=== PATIENT | female | born 1995 | race Caucasian/White ===

== ENCOUNTER 2016-11-09 17:55 | Emergency (ER) | payer OTHER ==
[~2016-11-09] VITALS: Ht 175.3 cm; Wt 72.8 kg
[2016-11-09 18:16] VITALS: TEMP 36.9; Ht 175.3 cm; Wt 72.8 kg
[2016-11-09] MEDS ORDERED: IBUPROFEN 600 MG TAB PO STA (18:47)
--- NOTE | 2016-11-09 19:23 | DIAGNOSTIC IMAGING REPORT ---
C-SPINE ROUTINE 4 OR 5 VIEWS HISTORY: Pain neck pain eval disc space COMPARISON: None. FINDINGS: The cervical spine is visualized from C1 through the superior endplate of T1. There is no fracture. No subluxation. Disc spaces are preserved. Prevertebral soft tissues and the atlantodens interval are intact. Muscle spasm with associated straightening of the cervical curvature. IMPRESSION: Muscular spasm. Otherwise negative study. The above report was generated using voice recognition software. It may contain grammatical, syntax or spelling errors. Electronically signed by: Zelalem Tang M.D. 11/09/2016 7:22 PM Dictated Date/Time: 11/09/2016 7:20 PM
[2016-11-09] MEDS ORDERED: BCPILLS PO (19:30)
[2016-11-09] MEDS ORDERED: IBUP-103 PO (19:30)
[2016-11-09 19:36] VITALS: BP 121/108; PULSE 91; O2SAT 100
--- NOTE | 2016-11-10 00:29 | EMERGENCY ROOM VISIT NOTE ---
History Report prepared by Be: Mehdi Hernandez Under the Supervision of: Dr. Oleksandr North M.D. First contact with patient: 18:41 Chief Complaint: NECK PAIN Stated Complaint: NECK PAIN History of Present Illness The patient is a 21 year old female who presents to the Emergency Room with complaints of constant neck pain for the past 2-3 days. The patient states that the pain is mostly in the posterior neck in the center. She states that it hurts to turn her head either way, though it hurts more to turn to the right. She denies any numbness or weakness in her arms or legs, chest pain, shortness of breath, fever, or chance of being . The patient denies any current headache, trouble urinating, or any active medical problems. She did have a headache previously. She additionally notes that she works out, though she is not lifting heavier weights than she normally does, and she states that she has been driving a lot recently. She came to the emergency department because she was concerned about meningitis. Source of History: patient Onset: 2-3 days ago Position: neck Quality: ache Timing: constant Modifying Factors (Worsening): movement Associated Symptoms: No fevers, No headache, No chest pain, No SOB, No urinary symptoms, No weakness, No numbness Review of Systems See HPI for pertinent positives & negatives. A total of 10 systems reviewed and were otherwise negative. Past Medical & Surgical Medical Problems: (1) Asthma (2) Infection of bursa Surgical Problems: (1) H/O knee surgery Family History Patient reports no known family medical history. Social History Smoking Status: Never Smoker Marital Status: single Housing Status: lives with roommate Occupation Status: [employer] student Current/Historical Medications Scheduled Control Pills ( Control Pills), 1 TAB PO DAILY Miscellaneous Medications Ibuprofen Tab (Advil), 200 MG PO Allergies Coded Allergies: No Known Allergies (Unverified , 03/19/14) Physical Exam Vital Signs Date Time Temp Pulse Resp B/P (MAP) Pulse Ox O2 Delivery O2 Flow Rate FiO2 11/09/16 19:36 91 20 121/108 100 Room Air 11/09/16 18:16 36.9 73 16 151/88 100 Room Air Physical Exam Constitutional: Vital signs reviewed. Well-appearing. Easily conversant. Eyes: Pupils are equal round reactive to light. Conjunctiva are noninjected. ENT: Pharynx is clear without erythema or exudate. Mucous membranes are moist. No midline tenderness to the cervical spine. Pain with turning her head to the right. Respiratory: Clear to auscultation bilaterally. Breath sounds are equal bilaterally. Cardiovascular: Regular rate and rhythm. No rubs or gallops. GI: Soft, nondistended and nontender. Bowel sounds are present. Musculoskeletal: No peripheral edema. Integumentary: No cyanosis. Neurological: The patient is awake and alert. No focal deficits. Psychiatric: Normal affect. Medical Decision & Procedures ER Provider Diagnostic Interpretation: Radiology results as stated below per my review and the radiologist's interpretation: C-SPINE ROUTINE 4 OR 5 VIEWS HISTORY: Pain neck pain eval disc space COMPARISON: None. FINDINGS: The cervical spine is visualized from C1 through the superior endplate of T1. There is no fracture. No subluxation. Disc spaces are preserved. Prevertebral soft tissues and the atlantodens interval are intact. Muscle spasm with associated straightening of the cervical curvature. IMPRESSION: Muscular spasm. Otherwise negative study. The above report was generated using voice recognition software. It may contain grammatical, syntax or spelling errors. Electronically signed by: Zelalem Tang M.D. 11/09/2016 7:22 PM Dictated Date/Time: 11/09/2016 7:20 PM Medications Administered Medications (Trade) Dose Ordered Sig/Cayla Route Start Time Stop Time Status Last Admin Dose Admin Ibuprofen (Motrin Tab) 600 mg NOW STAT PO 11/09/16 18:47 11/09/16 18:48 DC 11/09/16 18:52 600 MG ED Course 184: The patient was evaluated in room C5. A complete history and physical exam was performed. 184: Motrin Tab 600mg PO 192: I discussed the test results with the patient. She will be discharged home. Medical Decision This is a 21-year-old female presents with neck pain. Differential diagnosis includes strain, torticollis, cervical disc disease. I did perform a limited focused review of portions of the patient's old chart on the electronic medical record. The patient has had no recent pertinent visits to this hospital. I did evaluate the patient as noted above. The patient is presenting with right -sided neck pain. She appears to have some spasm and likely has a strain neck. She is neurologically intact. She did have a headache but it is resolved. She has had no fevers. There is no reason for me to suspect meningitis. I did order and personally review the patient's cervical spine x-rays as described above. There is no evidence of fracture dislocation. Disc spaces were preserved. She did have evidence of muscle spasm with straightening of the cervical spine. I did discuss the x-ray with the patient. I did treat the patient with ibuprofen and recommended continuing NSAIDs. She was discharged in good condition and given return instructions as outlined below. Medication Reconcilliation Current Medication List: was personally reviewed by me Blood Pressure Screening Patient's blood pressure: Elevated blood pressure Blood pressure disposition: Elevated BP felt to be situational Impression Primary Impression: Neck pain Scribe Attestation The scribe's documentation has been prepared under my direct and personally reviewed by me in its entirety. I confirm that the note above accurately reflects all work, treatment, procedures, and medical decision making performed by me. Departure Information Dispostion Home / Self-Care Referrals Keyana John M.D. (PCP) Forms HOME CARE DOCUMENTATION FORM, IMPORTANT VISIT INFORMATION, WORK / SCHOOL INSTRUCTIONS Patient Instructions ED Sprain Strain Neck, My [facility] Additional Instructions You have been examined and treated today on an emergency basis only. This is not a substitute for, or an effort to provide, complete comprehensive medical care. It is impossible to recognize and treat all injuries or illnesses in a single emergency department visit. It is therefore important that you follow up closely with your physician. Call as soon as possible for an appointment. Return for worsening symptoms or if you develop fever, severe headache, chest pain, shortness of breath, numbness or weakness in your extremities or any other concerning symptoms.
== END 2016-11-09 19:43 | disposition home or self-care (01) ==
LOC: C.EDB 17:58 → C.EDA 19:43
DX: M54.2 Cervicalgia (principal); J45.909 Unspecified asthma, uncomplicated; Z86.19 Personal history of other infectious and parasitic diseases; Z98.890 Other specified postprocedural states

== ENCOUNTER 2017-04-19 05:05 | Emergency (ER) | payer OTHER ==
[~2017-04-19] VITALS: Ht 175.3 cm; Wt 79.4 kg
[~2017-04-19 05:05] MED LIST: BCPILLS PO; IBUP-103 PO
[2017-04-19 05:15] VITALS: TEMP 37.1; Ht 175.3 cm; Wt 79.4 kg
[2017-04-19] MEDS ORDERED: SODIUM CHLORIDE 0.9% 1000ML 1,000 ML, SODIUM CHLORIDE 0.9% 1000ML 1,000 ML IV ONE (05:15)
[2017-04-19 05:57] LABS: BASO % 0.2 %; BASO ABS # 0.02 K/uL (0-0.2); EOS % 0.5 %; EOS ABS # 0.04 K/uL (0-0.5); HEMATOCRIT 37.3 % (37-47); HEMOGLOBIN 12.5 g/dL (12.0-16.0); IG# 0.01 K/uL (0.00-0.02); LYMPH % 31.1 %; LYMPH ABS # 2.52 K/uL (1.2-3.4); MEAN CELL VOLUME 88.2 fL (80-100); MEAN CORPUSCULAR HEMOGLOBIN 29.6 pg (25-34); MEAN CORPUSCULAR HGB CONC 33.5 g/dl (32-36); MONO % 11.3 %; MONO ABS # 0.92 K/uL (0.11-0.59); NEUT % 56.8 %; PLATELET COUNT 212 K/uL (130-400); RED CELL DISTRIBUTION WIDTH CV 13.2 % (11.5-14.5); RED CELL DISTRIBUTION WIDTH SD 42.6 fL (36.4-46.3); WHITE BLOOD COUNT 8.11 K/uL (4.8-10.8)
[2017-04-19 06:10] LABS: ALBUMIN 3.4 gm/dl (3.4-5.0); CALCIUM 8.2 mg/dl (8.5-10.1); CREATININE 0.74 mg/dl (0.60-1.20); POTASSIUM 3.3 mmol/L (3.5-5.1)
[2017-04-19 06:13] LABS: TOTAL PROTEIN 7.3 gm/dl (6.4-8.2)
--- NOTE | 2017-04-19 06:34 | DIAGNOSTIC IMAGING REPORT ---
CHEST 2 VIEWS ROUTINE CLINICAL HISTORY: asthma attack COMPARISON STUDY: No previous studies for comparison. FINDINGS: Lung volumes are normal. No pneumothorax or pleural effusion is noted. Cardiac size is normal. Mediastinal contours are normal. There is no evidence for pulmonary edema. There is no consolidation to suggest pneumonia. IMPRESSION: No acute cardiopulmonary findings. Electronically signed by: Jaya Muñiz M.D. 04/19/2017 6:33 AM Dictated Date/Time: 04/19/2017 6:32 AM
[2017-04-19 06:40] VITALS: BP 132/78; PULSE 78; O2SAT 97
--- NOTE | 2017-04-20 04:44 | EMERGENCY ROOM VISIT NOTE ---
History First contact with patient: 05:09 Chief Complaint: RESPIRATORY DISTRESS Stated Complaint: ASTHMA ATTACK Nursing Triage Summary: Dancing at thon, became dizzy and short of breath. Took one puff of fluticasone inhaler prior to EMS arrival and was feeling better at that time. Transported via EMS without exacerbation. No dyspnea upon arrival, dizziness remains. History of Present Illness The patient is a 22 year old female who presents to the Emergency Room with complaints of lightheadedness, dizziness, and shortness of breath that occurred at [facility] dance marathon. The patient has been awake for nearly 2 straight days and has been dancing for 37 consecutive hours. She states that while she was on the dance floor she began with the dizziness and lightheadedness. She felt like she was having an asthma attack and took fluticasone without any improvement of her symptoms. The patient is transported via EMS and feels much better. She is not having current chest pain, chest tightness, shortness of breath, or abdominal pain. She denies chance of . She considers herself otherwise usually healthy. She rates her current discomfort a 0/10. Review of Systems More than 10 systems were reviewed and otherwise negative with the exception of history of present illness. Past Medical/Surgical History Medical Problems: (1) Asthma (2) Infection of bursa Surgical Problems: (1) H/O knee surgery Family History Patient reports no known family medical history. Social History Smoking Status: Never Smoker Marital Status: single Housing Status: lives with roommate Occupation Status: [employer] student Current/Historical Medications Scheduled Control Pills ( Control Pills), 1 TAB PO DAILY Physical Exam Vital Signs Date Time Temp Pulse Resp B/P (MAP) Pulse Ox O2 Delivery O2 Flow Rate FiO2 04/19/17 06:40 78 17 132/78 97 04/19/17 06:25 91 21 100 04/19/17 06:10 96 20 100 04/19/17 06:05 93 17 100 04/19/17 05:50 87 16 99 Room Air 04/19/17 05:35 89 18 04/19/17 05:15 37.1 89 15 137/87 99 Room Air 04/19/17 05:12 137/87 Physical Exam VITALS: Vitals are noted on the nurse's note and reviewed by myself. Vital signs stable. GENERAL: Well-developed, well-nourished, white female who appears very tired. She is comfortable and cooperative. HEAD: Normocephalic atraumatic. EARS: External ear normal. External auditory canals clear, tympanic membranes pearly golden without erythema or effusion bilaterally. EYES: Pupils equal round and reactive to light and accommodation. Conjunctivae without injection, sclerae without icterus. Extraocular movements intact. NOSE: Patent, turbinates without inflammation or discharge. MOUTH: Mucous membranes moist. Tonsils are not enlarged. Pharynx without erythema, blood, or exudate. Uvula midline. Airway patent. NECK: Supple without nuchal rigidity. No lymphadenopathy. No thyromegaly. Cervical spine is nontender. HEART: Regular rate and rhythm without murmurs gallops or rubs. LUNGS: Clear to auscultation bilaterally without wheezes, rales or rhonchi. No retractions or accessory muscle use. ABDOMEN: Positive normal bowel sounds x 4. Soft, nontender, without masses or organomegaly. No guarding or rebound tenderness. MUSCULOSKELETAL: No muscle atrophy, erythema, or edema noted. Full range of motion without joint tenderness in all extremities. Medical Decision & Procedures ER Provider Diagnostic Interpretation: CHEST 2 VIEWS ROUTINE CLINICAL HISTORY: asthma attack COMPARISON STUDY: No previous studies for comparison. FINDINGS: Lung volumes are normal. No pneumothorax or pleural effusion is noted. Cardiac size is normal. Mediastinal contours are normal. There is no evidence for pulmonary edema. There is no consolidation to suggest pneumonia. IMPRESSION: No acute cardiopulmonary findings. Laboratory Results 04/19/17 05:35 Red Blood Count 4.23, Mean Corpuscular Volume 88.2, Mean Corpuscular Hemoglobin 29.6, Mean Corpuscular Hemoglobin Concent 33.5, Mean Platelet Volume 10.0, Neutrophils (%) (Auto) 56.8, Lymphocytes (%) (Auto) 31.1, Monocytes (%) (Auto) 11.3, Eosinophils (%) (Auto) 0.5, Basophils (%) (Auto) 0.2, Neutrophils # (Auto ) 4.60, Lymphocytes # (Auto) 2.52, Monocytes # (Auto) 0.92, Eosinophils # (Auto ) 0.04, Basophils # (Auto) 0.02 04/19/17 05:35 Test 04/19/17 05:35 04/19/17 05:45 White Blood Count 8.11 K/uL (4.8-10.8) Red Blood Count 4.23 M/uL (4.2-5.4) Hemoglobin 12.5 g/dL (12.0-16.0) Hematocrit 37.3 % (37-47) Mean Corpuscular Volume 88.2 fL (80-100) Mean Corpuscular Hemoglobin 29.6 pg (25-34) Mean Corpuscular Hemoglobin Concent 33.5 g/dl (32-36) Platelet Count 212 K/uL (130-400) Mean Platelet Volume 10.0 fL (7.4-10.4) Neutrophils (%) (Auto) 56.8 % Lymphocytes (%) (Auto) 31.1 % Monocytes (%) (Auto) 11.3 % Eosinophils (%) (Auto) 0.5 % Basophils (%) (Auto) 0.2 % Neutrophils # (Auto) 4.60 K/uL (1.4-6.5) Lymphocytes # (Auto) 2.52 K/uL (1.2-3.4) Monocytes # (Auto) 0.92 K/uL (0.11-0.59) Eosinophils # (Auto) 0.04 K/uL (0-0.5) Basophils # (Auto) 0.02 K/uL (0-0.2) RDW Standard Deviation 42.6 fL (36.4-46.3) RDW Coefficient of Variation 13.2 % (11.5-14.5) Immature Granulocyte % (Auto) 0.1 % Immature Granulocyte # (Auto) 0.01 K/uL (0.00-0.02) Urine Color YELLOW Urine Appearance CLEAR (CLEAR) Urine pH 6.5 (4.5-7.5) Urine Specific [place] 1.002 (1.000-1.030) Urine Protein NEG (NEG) Urine Glucose (UA) NEG (NEG) Urine Ketones NEG (NEG) Urine Occult Blood NEG (NEG) Urine Nitrite NEG (NEG) Urine Bilirubin NEG (NEG) Urine Urobilinogen NEG (NEG) Urine Leukocyte Esterase NEG (NEG) Urine Test NEG (NEG) Anion Gap 7.0 mmol/L (3-11) Est Creatinine Clear Calc Drug Dose 124.7 ml/min Estimated GFR () 133.3 Estimated GFR (Non- 115.0 BUN/Creatinine Ratio 12.3 (10-20) Calcium Level 8.2 mg/dl (8.5-10.1) Total Bilirubin 0.3 mg/dl (0.2-1) Aspartate Amino Transf (AST/SGOT) 22 U/L (15-37) Alanine Aminotransferase (ALT/SGPT) 21 U/L (12-78) Alkaline Phosphatase 60 U/L (45-117) Total Creatine Kinase 244 U/L (26-192) Total Protein 7.3 gm/dl (6.4-8.2) Albumin 3.4 gm/dl (3.4-5.0) Globulin 3.9 gm/dl (2.5-4.0) Albumin/Globulin Ratio 0.9 (0.9-2) Bedside Troponin I < 0.030 ng/ml (0-0.045) Medications Administered Medications (Trade) Dose Ordered Sig/Cayla Route Start Time Stop Time Status Last Admin Dose Admin Sodium Chloride/ Sodium Chloride 2,000 ml @ 999 mls/hr Q2H1M ONCE IV 04/19/17 05:15 04/19/17 07:15 DC 04/19/17 05:37 999 MLS/HR ED Course Physical exam and history were performed. Nursing notes, EMR, and Medication List were personally reviewed. Patient appears to have several symptoms regarding her to the emergency department. Based on the history and participate in dance marathon many of this is likely related to sleep deprivation. IV access was established and labs were obtained. The patient was hydrated with 2 L normal saline. X-ray was performed. EKG was normal sinus rhythm without acute ST elevation. The patient's blood work is as above and was reviewed. She does not have a significantly elevated white blood cell count, gross anemia, bandemia, or significant electrolyte imbalance. Transaminases are nondiagnostic. Troponin 1 is negative. Chest x-ray was reviewed by myself and radiology without showing acute process. The patient remained in normal sinus rhythm while on the manager cardiac. Patient was monitored for sometime here in the department, and was found to be sleeping very comfortably on final evaluation. I had a lengthy discussion with patient regarding her symptoms, and overall feel that she is well for discharge home. The patient is to rest today and will otherwise be treated conservatively. She is to follow-up with [facility] the next few days for recheck of her condition. She was otherwise invited back to the emergency department with any new, worsening, or concerning symptoms. The chart was completed utilizing [employer] Speech Voice Recognition Software. Grammatical errors, random word insertions, pronoun errors, and incomplete sentences are an occasional consequence of this system due to software limitations, ambient noise, and hardware issues. Any formal questions or concerns about the content, text, or information contained within the body of this dictation should be directly addressed to the provider for clarification. . Medical Decision Differential diagnosis includes, but is not limited to: Myocardial infarction, dysrhythmia, pericarditis, pneumothorax, aortic aneurysm/dissection, DVT/PE, anxiety, GERD, PUD, electrolyte imbalance, thyroid disorder, pneumonia, bronchitis, pancreatitis, and others Impression Primary Impression: Asthma attack Additional Impressions: Fatigue Sleep deprivation Departure Information Dispostion Home / Self-Care Condition GOOD Referrals Keyana John M.D. (PCP) Forms HOME CARE DOCUMENTATION FORM, IMPORTANT VISIT INFORMATION Patient Instructions Asthma - [facility], On License Of [facility] Additional Instructions You were seen and evaluated today on an emergency basis only. This is not a substitute for, or an effort to provide, complete comprehensive medical care. It is not possible to recognize and treat all injuries or illnesses in a single emergency department visit. For this reason it is recommended that you followup with [facility] in the next 1-2 days for recheck. Continue your inhalers at home. You are welcome to return to the emergency department anytime with new, worsening, or concerning symptoms. Problem Qualifiers
== END 2017-04-19 06:50 | disposition home or self-care (01) ==
LOC: EDBD 05:05 → C.EDB 05:06
DX: J45.901 Unspecified asthma with (acute) exacerbation (principal); R53.83 Other fatigue; Z72.820 Sleep deprivation; Z79.3 Long term (current) use of hormonal contraceptives